=== PATIENT | female | born 1930 | race Caucasian/White ===

== ENCOUNTER 2016-12-16 22:46 | Emergency (ER) | payer MEDICARE ==
[~2016-12-16] VITALS: Ht 160 cm; Wt 72.5 kg
[~2016-12-16 22:46] MED LIST: ACETAMINOPHEN-1 EAC1 PO; ALLOPURINOL100 MG PO; ANTIVERT25 MG PO; ARICEPT10 MG PO; ASPIRIN EC81 MG PO; ATENOLOL25 MG PO; CEPHALEXIN500 MG PO; CLOPIDOGREL75 MG PO; HYDROCHLOROTHIA25 MG PO; K-TAB ER20 MEQ PO; KLOR-CON M2020 MEQ PO; LEVAQUIN500 MG PO; LEVOTHYROXINE50 MCG PO; LIPITOR20 MG PO; MACROBID 100 M100 MG PO; QUETIAPINE FUMA25 MG PO; SIMVASTATIN20 MG PO
== END 2016-12-17 01:58 | disposition home or self-care (01) ==
LOC: ED 22:46
DX: R53.1 Weakness (principal); C50.919 Malignant neoplasm of unspecified site of unspecified female breast; I25.2 Old myocardial infarction; Z90.49 Acquired absence of other specified parts of digestive tract; Z79.899 Other long term (current) drug therapy
CPT/HCPCS: 80053; 81001; 85025; 96360; 99283; J7030

== ENCOUNTER 2020-10-01 13:53 | Emergency (ER) | payer MEDICARE ==
[~2020-10-01] VITALS: Ht 157.5 cm; Wt 63.5 kg
[2020-10-01] MEDS ORDERED: CEPHALEXIN500 MG PO (18:44)
--- NOTE | 2020-10-03 13:12 | EKG ---
[facility] [address] [place], [place] [address] Signed Normal sinus rhythm Minimal voltage criteria for LVH, may be normal variant Borderline ECG When compared with ECG of 20-MAY-2016 07:51, NC interval has decreased Confirmed by LUPE MCCALL DO ([id number]) on 10/03/2020 1:12:26 PM Electronically Signed By: LUPE MCCALL DO 10/03/20 1312 PATIENT NAME: YOLANDA ABRAMS Electrocardiogram DATE OF : 32 PHYSICIAN: LUPE MCCALL DO REPORT #: [id number] REPORT IS CONFIDENTIAL AND NOT TO BE RELEASED WITHOUT AUTHORIZATION
== END 2020-10-01 20:30 | disposition home or self-care (01) ==
LOC: ED 13:53
DX: N39.0 Urinary tract infection, site not specified (principal); E86.0 Dehydration; Z85.3 Personal history of malignant neoplasm of breast; I25.2 Old myocardial infarction; F03.90 Unspecified dementia, unspecified severity, without behavioral disturbance, psychotic disturbance, mood disturbance, and anxiety; Z79.899 Other long term (current) drug therapy; Z79.82 Long term (current) use of aspirin
CPT/HCPCS: 80053; 81001; 83735; 84484; 85025; 93005; 93010; 96365; 99284-25; J0696